=== PATIENT | male | born 1960 | race Caucasian/White ===

== ENCOUNTER 2016-08-18 01:09 | Emergency (ER) | payer MEDICAID, OTHER ==
[2016-08-18] MEDS ORDERED: NS 1,000 ML IV ONE ×2 (01:23→01:53)
[2016-08-18] MEDS ORDERED: ONDANSETRON 4 MG/2 ML VIAL IVP ONE (01:23)
[2016-08-18] MEDS ORDERED: HYDROmorphONE/DILAUDID 1 MG/ML SYR IVP ONE ×2 (01:23→02:13)
--- NOTE | 2016-08-18 01:23 | EDPHY ---
H & P Stated Complaint: RLQ abd pain, N/V, x 3 hours HPI/ROS: HPI CHIEF COMPLAINT: Right flank pain HISTORY OF PRESENT ILLNESS: This patient very pleasant 55-year-old male denies any significant medical history does not take any daily medications, presents emergency room with right flank pain acute in onset 3 hours ago. Pain is located 10/10 right flank. Sharp stabbing. Located right flank. Right lower quadrant. Radiates into his right testicle. Denies trauma. No history of kidney stones. Started abruptly 3 hours ago now very severe 10/10. Associated nausea no vomiting. Denies chest pain or shortness of breath. Denies urinary symptoms. 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 Family History: Noncontributory ROS REVIEW OF SYSTEMS: A comprehensive 10 point review of systems is otherwise negative aside from elements mentioned in the history of present illness. Exam Constitutional appears uncomfortable, triage nursing summary reviewed, vital signs reviewed, awake/alert. Eyes normal conjunctivae and sclera, EOMI, PERRLA. HENT normal inspection, atraumatic, moist mucus membranes, no epistaxis, neck supple/ no meningismus, no raccoon eyes. Respiratory clear to auscultation bilaterally, normal breath sounds, no respiratory distress, no wheezing. Cardiovascular rate normal, regular rhythm, no murmur, no edema, distal pulses normal. Gastrointestinal soft, tender palpation right lower quadrant, no rebound, no guarding, normal bowel sounds, no distension, no pulsatile mass. Genitourinary exam; circumcised, normal testicular exam. No tenderness to palpation. Musculoskeletal no midline vertebral tenderness, full range of motion, no calf swelling, no tenderness of extremities, no meningismus, good pulses, neurovascularly intact. Skin pink, warm, & dry, no rash, skin atraumatic. Neurologic awake, alert and oriented x 3, AAOx3, moves all 4 extremities equally, motor intact, sensory intact, CN II-XII intact, normal cerebellar, normal vision, normal speech. Psychiatric normal mood/affect. Heme/Lymph/Immune no lymphadenopathy. Differential diagnosis includes but is not limited to and in no particular order : Renal colic, hydroureter, hydronephrosis Bowel obstruction, appendicitis, gallbladder disease, diverticulitis, colitis, enteritis, perforated viscus, gastritis, GERD, esophagitis, urinary tract infection, pyelonephritis, kidney stones Medical Decision Making: Plan for this patient IV establishment, IV fluid bolus , IV Dilaudid for acute pain control. CT abdomen pelvis without contrast for flank pain. Check blood work and urinalysis. Re-evaluation: 0209AM: Re-evaluation at this time pain is improved after IV Dilaudid however still having ongoing pain. 2nd dose of IV Dilaudid ordered. Blood work has been reviewed elevated lactic acid. He is getting a 2nd L fluid. Afebrile. No hypotension. Will repeat lactic acid after 2nd L. Patient having ongoing flank pain. CT scan pending. Creatinine normal I have ordered him IV Toradol. CT scan of the abdomen pelvis without IV contrast The results of the study are this shows a 2 x 3 x 3 mm right distal UVJ stone. Additional to this finding there are multiple incidental findings including pulmonary nodules that will need outpatient follow-up, as well as a hiatal hernia as well as a cyst on the right kidney this is the unenhanced CT scan the cyst on the right kidney will also need to be followed up. I have explained this to the patient.. The study was read by Dr. Lynn. I viewed the images myself on the PACS system. 1. patient has a kidney stone right distal UVJ stone 3 mm. Mild hydronephrosis. 2. pulmonary nodules base of lungs needs follow up outpatient. 3. right renal cyst needs follow up outpatient. Patient understands. Source: Patient - Personal History Current Tetanus/Diphtheria Vaccine: Unsure Current Tetanus Diphtheria and Acellular Pertussis (TDAP): Unsure - Medical/Surgical History Hx Asthma: No Hx Chronic Respiratory Disease: No Hx Diabetes: No Hx Cardiac Disease: No Hx Renal Disease: No Hx Cirrhosis: No Hx Alcoholism: No Hx HIV/AIDS: No Hx Splenectomy or Spleen Trauma: No Other PMH: denies - Social History Smoking Status: Current some day smoker Constitutional: Initial Vital Signs Temperature (C) 36.5 C 08/18/16 01:12 Heart Rate 85 08/18/16 01:12 Respiratory Rate 26 H 08/18/16 01:12 Blood Pressure 127/92 H 08/18/16 01:12 O2 Sat (%) 99 08/18/16 01:12 O2 Delivery Mode Room Air O2 (L/minute) 2 Allergies/Adverse Reactions: No Known Allergies Allergy (Unverified 08/18/16 01:12) Home Medications: Medication Instructions Recorded Hydrocodone/APAP 5/325 [[place] 1 - 2 tab PO Q4H PRN #10 tab 08/18/16 5/325] Ondansetron HCl [Zofran] 4 mg PO Q4-6PRN PRN #10 tablet 08/18/16 Tamsulosin HCl [Flomax] 0.4 mg PO DAILY #10 cap 08/18/16 Medical Decision Making - Data Points Laboratory Results: Laboratory Results 08/18/16 01:35 08/18/16 01:35 08/18/16 08/18/16 08/18/16 03:22 01:35 01:35 WBC RBC Hgb Hct MCV MCH MCHC RDW Plt Count MPV Neut % (Auto) Lymph % (Auto) [place] % (Auto) Eos % (Auto) Baso % (Auto) Nucleat RBC Rel Count Absolute Neuts (auto) Absolute Lymphs (auto) Absolute Monos (auto) Absolute Eos (auto) Absolute Basos (auto) Absolute Nucleated RBC Immature Gran % Immature Gran # PT 12.9 SEC SEC (12.0-15.0) INR 0.98 (0.83-1.16) APTT 29.8 SEC SEC (23.0-38.0) VBG Lactic Acid 1.6 mmol/L D mmol/L (0.7-2.1) Sodium 144 mEq/L mEq/L (134-144) Potassium 3.7 mEq/L mEq/L (3.5-5.2) Chloride 106 mEq/L mEq/L (97-110) Carbon Dioxide 22 mEq/l mEq/l (22-31) Anion Gap 16 mEq/L mEq/L (8-16) BUN 21 mg/dL mg/dL (7-23) Creatinine 1.2 mg/dL mg/dL (0.7-1.3) Estimated GFR > 60 Glucose 149 mg/dL H mg/dL (70-100) Calcium 10.1 mg/dL mg/dL (8.5-10.4) Total Bilirubin 1.0 mg/dL mg/dL (0.1-1.4) Conjugated Bilirubin 0.4 mg/dL mg/dL (0.0-0.5) Unconjugated Bilirubin 0.6 mg/dL mg/dL (0.0-1.1) AST 40 IU/L IU/L (17-59) ALT 55 IU/L IU/L (21-72) Alkaline Phosphatase 98 IU/L IU/L (38-126) Total Protein 7.5 g/dL g/dL (6.3-8.2) Albumin 4.7 g/dL g/dL (3.5-5.0) Lipase 165.0 IU/L IU/L (23-300) Urine Color Urine Appearance Urine pH Ur Specific [place] Urine Protein Urine Ketones Urine Blood Urine Nitrate Urine Bilirubin Urine Urobilinogen Ur Leukocyte Esterase Urine RBC Urine WBC Ur Epithelial Cells Urine Mucus Urine Glucose 08/18/16 08/18/16 08/18/16 01:35 01:35 01:20 WBC 17.73 10^3/uL H 10^3/uL (3.80-9.50) RBC 5.45 10^6/uL 10^6/uL (4.40-6.38) Hgb 16.2 g/dL g/dL (13.7-17.5) Hct 46.9 % % (40.0-51.0) MCV 86.1 fL fL (81.5-99.8) MCH 29.7 pg pg (27.9-34.1) MCHC 34.5 g/dL g/dL (32.4-36.7) RDW 13.5 % % (11.5-15.2) Plt Count 296 10^3/uL 10^3/uL (150-400) MPV 9.6 fL fL (8.7-11.7) Neut % (Auto) 88.8 % H % (39.3-74.2) Lymph % (Auto) 6.5 % L % (15.0-45.0) [place] % (Auto) 3.9 % L % (4.5-13.0) Eos % (Auto) 0.2 % L % (0.6-7.6) Baso % (Auto) 0.3 % % (0.3-1.7) Nucleat RBC Rel Count 0.0 % % (0.0-0.2) Absolute Neuts (auto) 15.73 10^3/uL H 10^3/uL (1.70-6.50) Absolute Lymphs (auto) 1.16 10^3/uL 10^3/uL (1.00-3.00) Absolute Monos (auto) 0.70 10^3/uL 10^3/uL (0.30-0.80) Absolute Eos (auto) 0.03 10^3/uL 10^3/uL (0.03-0.40) Absolute Basos (auto) 0.05 10^3/uL 10^3/uL (0.02-0.10) Absolute Nucleated RBC 0.00 10^3/uL 10^3/uL (0-0.01) Immature Gran % 0.3 % % (0.0-1.1) Immature Gran # 0.06 10^3/uL 10^3/uL (0.00-0.10) PT INR APTT VBG Lactic Acid 5.0 mmol/L H mmol/L (0.7-2.1) Sodium Potassium Chloride Carbon Dioxide Anion Gap BUN Creatinine Estimated GFR Glucose Calcium Total Bilirubin Conjugated Bilirubin Unconjugated Bilirubin AST ALT Alkaline Phosphatase Total Protein Albumin Lipase Urine Color YELLOW Urine Appearance CLEAR Urine pH 9.0 H (5.0-7.5) Ur Specific [place] 1.026 (1.002-1.030) Urine Protein 1+ H (NEGATIVE) Urine Ketones 1+ H (NEGATIVE) Urine Blood 1+ H (NEGATIVE) Urine Nitrate NEGATIVE (NEGATIVE) Urine Bilirubin NEGATIVE (NEGATIVE) Urine Urobilinogen NEGATIVE EU EU (0.2-1.0) Ur Leukocyte Esterase NEGATIVE (NEGATIVE) Urine RBC 15-25 /hpf H /hpf (0-3) Urine WBC 3-5 /hpf H /hpf (0-3) Ur Epithelial Cells TRACE /lpf /lpf (NONE-1+) Urine Mucus TRACE /lpf /lpf (NONE-1+) Urine Glucose NEGATIVE (NEGATIVE) Departure - Departure Disposition: Home, Routine, Self-Care Clinical Impression: Kidney stone on right side, Pulmonary nodules, Renal cyst Condition: Good Instructions: Kidney Stones (ED), Renal Colic (ED) Additional Instructions: 1. patient has a kidney stone right distal UVJ stone 3 mm. Mild hydronephrosis. 2. pulmonary nodules base of lungs needs follow up outpatient. 3. right renal cyst needs follow up outpatient. Patient understands Referrals: NONE *PRIMARY CARE P,. [Primary Care Provider] - As per Instructions Rodrick Rodriguez MD [Medical Doctor] - As per Instructions Prescriptions: Hydrocodone/APAP 5/325 [[place] 5/325] 1 - 2 tab PO Q4H PRN #10 tab PRN Reason: Pain, Moderate Ondansetron HCl [Zofran] 4 mg PO Q4-6PRN PRN #10 tablet PRN Reason: Nausea/Vomiting, Use 1st Tamsulosin HCl [Flomax] 0.4 mg PO DAILY #10 cap
[2016-08-18 01:33] LABS: COLOR YELLOW; LEUKOCYTE ESTERASE,URINE NEGATIVE (NEGATIVE); NITRITE,URINE NEGATIVE (NEGATIVE)
[2016-08-18 01:41] LABS: % IMMATURE GRANULYOCYTES 0.3 % (0.0-1.1); ABSOLUTE IMMATURE GRANULOCYTES 0.06 10^3/uL (0.00-0.10); ADD DIFF? NO; ADD MORPH? NO; ADD SCAN? NO; ATYPICAL LYMPHOCYTE FLAG 0 (0-99); FRAGMENT RBC FLAG 0 (0-99); HEMATOCRIT 46.9 % (40.0-51.0); HEMOGLOBIN 16.2 g/dL (13.7-17.5); LEFT SHIFT FLG 0 (0-99); LIPEMIA HEMOLYSIS FLAG 90 (0-99); MEAN CELL HEMOGLOBIN 29.7 pg (27.9-34.1); MEAN CELL HEMOGLOBIN CONCENTR. 34.5 g/dL (32.4-36.7); MEAN CELL VOLUME 86.1 fL (81.5-99.8); MEAN PLATELET VOLUME 9.6 fL (8.7-11.7); PLATELET CLUMPS FLAG 0 (0-99); PLATELET COUNT 296 10^3/uL (150-400); RED BLOOD CELL COUNT 5.45 10^6/uL (4.40-6.38); RED CELL DISTRIBUTION WIDTH 13.5 % (11.5-15.2)
[2016-08-18 01:49] LABS: MUCUS TRACE /lpf (NONE-1+); RBC,URINE 15-25 /hpf (0-3)
[2016-08-18 01:50] LABS: INR 0.98 (0.83-1.16); PROTIME(PATIENT) 12.9 SEC (12.0-15.0)
[2016-08-18 01:51] LABS: APTT 29.8 SEC (23.0-38.0)
[2016-08-18 01:59] LABS: ALANINE AMINOTRANSFERASE 55 IU/L (21-72); ALBUMIN 4.7 g/dL (3.5-5.0); ALKALINE PHOSPHATASE 98 IU/L (38-126); ANION GAP 16 mEq/L (8-16); ASPARTATE AMINOTRANSFERASE 40 IU/L (17-59); BILIRUBIN-CONJUGATED 0.4 mg/dL (0.0-0.5); BILIRUBIN-UNCONJUGATED 0.6 mg/dL (0.0-1.1); CALCIUM 10.1 mg/dL (8.5-10.4); CARBON DIOXIDE 22 mEq/l (22-31); CHLORIDE 106 mEq/L (97-110); CREATININE 1.2 mg/dL (0.7-1.3); GLOMERULAR FILTRATION RATE > 60; GLUCOSE 149 mg/dL (70-100); POTASSIUM 3.7 mEq/L (3.5-5.2); SODIUM 144 mEq/L (134-144); TOTAL PROTEIN 7.5 g/dL (6.3-8.2)
[2016-08-18] MEDS ORDERED: HYDROmorphONE/DILAUDID 1 MG/ML SYR ONE (02:05)
[2016-08-18] MEDS ORDERED: KETOROLAC 30 MG/1 ML SDV IVP ONE (02:08)
[2016-08-18] MEDS ORDERED: HYDROCOD/APAP 5/325 PREPACK#6 BTL TAKEHOME ONE (04:03)
[2016-08-18 04:09] VITALS: RESP 16
[2016-08-18] MEDS ORDERED: OXYCODONE/APAP 5/325 TAB ONE (04:13)
[2016-08-18] MEDS ORDERED: OXYCODONE/APAP 5/325 TAB PO ONE (04:21)
[2016-08-18 04:22] VITALS: BP 108/72; PULSE 95; TEMP 98.1; O2SAT 98
== END 2016-08-18 04:23 | disposition home or self-care (01) ==
DX: N20.0 Calculus of kidney (principal); N28.1 Cyst of kidney, acquired; R91.1 Solitary pulmonary nodule; F17.200 Nicotine dependence, unspecified, uncomplicated
CPT/HCPCS: 96374; J1170; J1885; J2405

== ENCOUNTER 2016-08-19 16:19 | Emergency (ER) | payer MEDICAID ==
[2016-08-19 16:44] VITALS: TEMP 97.5; O2SAT 99
--- NOTE | 2016-08-19 17:59 | EDPHY ---
H & P Time Seen by Provider: 08/19/16 16:44 HPI/ROS: CHIEF COMPLAINT: pain medication HISTORY OF PRESENT ILLNESS: 55-year-old male presents emergency department requesting more pain medications. Patient was seen yesterday in the emergency department with acute onset right sided abdominal and flank pain noticed to have a right ureteral stone at the UVJ. Patient was prescribed 10 pills of [place] yesterday, he has taken all those medications and continued in pain this evening so presented to the emergency department. Patient reports as she has been sitting in the emergency department his pain has significantly improved though continues. He has called the urologist and left the message, he will schedule an appointment to be seen. He is requesting a referral for primary care doctor. Patient is urinating without difficulty, he denies fevers or chills, no nausea or vomiting, no new symptoms or concerns. REVIEW OF SYSTEMS: A comprehensive 10 point review of systems is otherwise negative aside from elements mentioned in the history of present illness. Smoking Status: Current some day smoker Physical Exam: Physical Exam Gen: Alert and Oriented, NAD HEENT: PERRL, moist mucous membranes NECK: no meningismus CV: regular rate and regular rhythm PULM: CTAB, no wheezes ABDOMEN: soft, non tender to palpation, BS present BACK: Mild right CVA tenderness NEURO: Neurologically grossly intact EXTREMITIES: normal appearing SKIN: no rash or break in skin on exposed skin PSYCH: answers questions appropriately. Constitutional: Initial Vital Signs Temperature (C) 36.4 C 08/19/16 16:41 Heart Rate 85 08/19/16 16:41 Respiratory Rate 18 08/19/16 16:41 Blood Pressure 125/69 H 08/19/16 16:41 O2 Sat (%) 99 08/19/16 16:41 O2 Delivery Mode Room Air Allergies/Adverse Reactions: No Known Allergies Allergy (Verified 08/19/16 16:41) Home Medications: Medication Instructions Recorded Hydrocodone/APAP 5/325 [[place] 1 - 2 tab PO Q4H PRN #10 tab 08/18/16 5/325] Ondansetron HCl [Zofran] 4 mg PO Q4-6PRN PRN #10 tablet 08/18/16 Tamsulosin HCl [Flomax] 0.4 mg PO DAILY #10 cap 08/18/16 Hydrocodone/APAP 5/325 [[place] 1 tab PO Q4H PRN #10 tab 08/19/16 5/325] MDM/Departure - Depart Disposition: Home, Routine, Self-Care Clinical Impression: Medication refill Condition: Good Instructions: Medicine Refill (ED) Additional Instructions: Take 1 [place] every 6-8 hours as needed for pain. Follow up with the urologist. Call to schedule an appointment with the primary care doctor listed. Prescriptions: Hydrocodone/APAP 5/325 [[place] 5/325] 1 tab PO Q4H PRN #10 tab PRN Reason: Pain, Moderate Referrals: [facility],. [Clinic] - As per Instructions
[2016-08-19 18:16] VITALS: BP 122/67; PULSE 84; RESP 16
== END 2016-08-19 18:18 | disposition home or self-care (01) ==
DX: Z76.0 Encounter for issue of repeat prescription (principal); F17.200 Nicotine dependence, unspecified, uncomplicated